=== PATIENT | male | born 1965 | race Caucasian/White ===

== ENCOUNTER 2021-07-31 15:40 | Outpatient (REF) | payer BC, SELFPAY ==
--- NOTE | 2021-07-31 16:59 | MHC.AU.AHA ---
Adult Audiological Evaluation Date of Visit: 07/31/21 Reason for Appointment: Audiological evaluation to monitor the status of Mr. Briggs's hearing loss. He has a know bilateral, asymmetrical hearing loss with his left ear hearing worse than his right. He uses a BiCROS hearing aid system, with a hearing aid on the right ear and a CROS drafting layout worker on the left ear. Mr. Briggs does not have speech understanding abilities in the left ear. He feels his hearing is gradually getting worse and notes that his hearing aids likely need cleaning. Previous Hearing Test Results: [facility] [place], 09/08/2018- Mild to moderate sensorineural hearing loss in the right ear. Profound mixed hearing loss in the left ear. Ear History: Ear Infections in Childhood: Both Ears Previous Ear Surgery: PE tubes in childhood Medical History: Medical History: High Blood Pressure, Stroke Medical History: Had a carotid artery procedure following a stroke, ADHD, hyperlipidemia, prediabetes Allergies: Seasonal/environmental Medication List: Aspirin 81 mg, Atorvastatin 40 mg, Bupropion 600 mg, Vitamin D3 1000 units, Adderall 15 mg, Diclofenac potassium 50 mg, melatonin 3 mg, metoprolol succinate 25 mg, Zolpidem 10 mg Hearing Instrument History- Right Ear: Peanut Butter Maker: Phonak Model: Boler [id number]-M13 Serial Number: [id number] Battery Size: 13 Repair Warranty: 07/20/2017 Loss and Damage Warranty: 07/20/2017 Dispensed By: [facility] Date of Fittin05/12/2014 Hearing Instrument History- Left Ear: Peanut Butter Maker: Phonak Model: [id number]-H2O Serial Number: [id number] Battery Size: 13 Warranty: 07/20/2015 Loss and Damage Warranty: 07/20/2015 Dispensed By: [facility] Date of Fittin05/12/2014 Otoscopy: Right Ear: Unremarkable Left Ear: Unremarkable Tympanometry: Tympanometry performed due to: To assess integrity of the middle ear system Right Ear: Hypercompliant Middle Ear System (Type Ad) Left Ear: Hypercompliant Middle Ear System (Type Ad) Hearing Evaluation: Transducer(s) Used: Insert Earphones, Bone Conduction Method: Conventional Audiometry Stimuli Used: Pure Tones Right Ear: Description of Hearing: Normal hearing at 250 Hz, sloping to a mild to moderate sensorineural hearing loss from 500-8000 Hz. Left Ear: Description of Hearing: Profound mixed hearing loss from 250-8000 Hz. Speech Recognition Threshold (SRT): Method Used: Monitored Live Voice Stimuli Used: Spondee Words Right Ear: 30 dBHL Left Ear: DNT - no speech understanding ability Word Discrimination: Method: Recorded Lists Word Lists Used: NU-6 Right Ear: 96% at 70 dBHL Left Ear: DNT - no speech understanding ability Comparison: Compared to the most recent evaluation: Hearing is stable. Recommendations: Audiological re-evaluation in one year. Given the age of his current hearing aids, updated amplification is recommended to help facilitate improved communication. Patient plans to contact [facility]. Hearing aid maintenance performed today. Hearing aid(s) reprogrammed with updated test results. Diagnosis: Primary Diagnosis: H90.3 Bilateral Sensorineural Hearing Loss Services Performed: Comprehensive Audiological Evaluation (CPT 74936) Tympanometry (CPT 35149) Signature: Provider: Gamaliel Almendarez, CCC-A
== END 2021-07-31 15:41 | disposition home or self-care (01) ==
LOC: HO.SH 15:40
PROVIDERS: Visit Provider Nurse Practitioner Family
DX: H90.3 Sensorineural hearing loss, bilateral (principal)
CPT/HCPCS: 92557; 92567

== ENCOUNTER 2023-05-26 12:40 | Outpatient (REF) | payer BC, SELFPAY | END 2023-05-26 12:41 | disposition home or self-care (01) | LOC: HO.SH 12:40 | PROVIDERS: Visit Provider Family Medicine | DX: Z01.118 Encounter for examination of ears and hearing with other abnormal findings (principal); H90.3 Sensorineural hearing loss, bilateral | CPT/HCPCS: 92557 ==

== ENCOUNTER 2023-05-26 13:37 | Outpatient (REF) | payer SELFPAY ==
--- NOTE | 2023-05-26 14:05 | MHC.AU.HA3 ---
Hearing Instrument Follow-Up- Binaural Date of Visit: 05/26/23 Right Ear: Make, Model, Color, Serial Number: Soha Fontana [id number] SN: [id number] Color: Graphite Krishna Color Strainer Repair Warranty: 07/20/2017 Color Strainer Loss and Damage Warranty: 07/20/2017 Battery Size: 13 Student Financial Services Counselor/Slim Tube: 1 slim tube Earmold/Dome/CShell/SlimTip:Small open dome Dispensed By: [facility] Date of Fittin05/12/2014 Left Ear: Make, Model, Color, Serial Number: Soha CROS [id number] SN: [id number] Color: Graphite Krishna Color Strainer Repair Warranty: 07/20/2015 Color Strainer Loss and Damage Warranty: 07/20/2015 Battery Size: 13 Student Financial Services Counselor/Slim Tube: 1 CROS tube Earmold/Dome/CShell/SlimTip: Small open dome Dispensed By: [facility] Date of Fittin05/12/2014 Follow-Up Summary: Marco Antonio returned for routine hearing aid maintenance following updated audio (see separate report). Left CROS missing dome and end of tubing as cat reportedly ate it. Both tubes discolored and full of wax. Cleaned hearing aids and battery compartments. Ran hearing aids through dehumidifier. Vacuumed microphones. Replaced tubing and domes. A listening check demonstrated that the hearing aids are functioning. Discussed new hearing aids due to age of current pair. Marco Antonio reported that he is planning to pursue new hearing aids through [facility] again. Provided contact information for [facility]. If approved through [facility], Marco Antonio will schedule a hearing aid consultation knowing his hearing test is valid for six months. No programming changes made at this time as hearing is stable. Recommendations: Hearing instrument follow-up or maintenance as needed. Please contact our clinic with any questions or concerns. Diagnosis Code(s): Primary Diagnosis: H90.3 Bilateral Sensorineural Hearing Loss Signature: Provider: Haroon Lezama, [facility]
--- NOTE | 2023-05-26 14:06 | MHC.AU.MED ---
Medical Clearance for Hearing Instrumentation Date: 05/26/23 Patient Name: Marco Antonio Briggs Date of : 1965 Primary Care Provider: Ricardo Noe MD We have seen your patient on 05/26/23 and have determined that they are a candidate for amplification (See accompanying report). Specifically, they would benefit from: Hearing aid use in both ears There is a statute that addresses Medical Evaluation Requirements prior to fitting a patient with a hearing aid. According to [place] statute [facility] CMR:6.03(1), (a) General. Except as provided in 265 CMR 6.03(1)(b), a deaf and hard of hearing teacher shall not sell a hearing aid unless the prospective user has presented to the deaf and hard of hearing teacher a written statement signed by a licensed physician that states that the patient's hearing loss has been medically evaluated and the patient may be considered a candidate for a hearing aid. The medical evaluation must have taken place within the preceding six months. Please note: Due to the [place] Statute referenced above, we cannot accept a signature other than that of a licensed physician. FINGERNAIL TECHNICIAN and PA signatures cannot be accepted. I am in agreement with the above recommendation. There is no medical contraindication for hearing instrumentation. Physician Signature Date Physician Name (Printed)
== END 2023-05-26 13:38 | disposition home or self-care (01) ==
LOC: HO.HAP 13:37
PROVIDERS: Visit Provider Family Medicine
DX: Z46.1 Encounter for fitting and adjustment of hearing aid (principal); H90.3 Sensorineural hearing loss, bilateral
CPT/HCPCS: 92593